=== PATIENT | female | born 1990 | race Caucasian/White ===

== ENCOUNTER 2017-02-25 09:04 | Observation (INO) | payer BC ==
[~2017-02-25] VITALS: Ht 162.6 cm; Wt 56.7 kg
[2017-02-25] MEDS ORDERED: HYDROCODONE/ACETAMOPHEN 5/325MG TAB PO STA (09:22)
--- NOTE | 2017-02-25 09:58 | DIAGNOSTIC IMAGING REPORT ---
CT HEAD WITHOUT CONTRAST (CT) CLINICAL HISTORY: Worst headache of life. Right orbital pain. COMPARISON STUDY: No previous studies for comparison. TECHNIQUE: Axial CT of the brain is performed from the vertex to the skull base. IV contrast was not administered for this examination. CT DOSE: 729.09 mGy.cm FINDINGS: No intra or extra-axial mass lesions are visualized. There is no CT evidence of acute cortical infarction. There is no evidence of midline shift. There is no acute hemorrhage. No calvarial fractures are visualized. There is no evidence of pathologic ventricular dilatation. There is a right maxillary sinus air-fluid level. There is mucosal thickening within the left maxillary sinus. Multiple ethmoid air cells are opacified. There is opacification of a hypoplastic right frontal sinus. IMPRESSION: 1. Moderately extensive sinus disease 2. Otherwise no acute intracranial findings Electronically signed by: Jason Brewer M.D. 02/25/2017 9:57 AM Dictated Date/Time: 02/25/2017 9:54 AM
[2017-02-25 10:01] LABS: BASO % 0.1 %; BASO ABS # 0.01 K/uL (0-0.2); COMPLETE YES; EOS % 1.4 %; HEMATOCRIT 36.8 % (37-47); IG% 0.2 %; LYMPH ABS # 1.43 K/uL (1.2-3.4); MEAN CORPUSCULAR HEMOGLOBIN 29.8 pg (25-34); MEAN CORPUSCULAR HGB CONC 34.2 g/dl (32-36); MEAN PLATELET VOLUME 8.4 fL (7.4-10.4); MONO % 5.6 %; NEUT % 81.7 %; PLATELET COUNT 346 K/uL (130-400); RED BLOOD COUNT 4.23 M/uL (4.2-5.4); WHITE BLOOD COUNT 13.04 K/uL (4.8-10.8)
--- NOTE | 2017-02-25 10:03 | EMERGENCY ROOM VISIT NOTE ---
History First contact with patient: 09:13 Chief Complaint: HEAD PAIN Stated Complaint: CONGESTION,FACIAL PAIN History of Present Illness The patient is a 27 year old female who presents to the Emergency Room via private vehicle, referred by [facility] [employer] with complaints of "congestion, facial pain". The patient states that Sunday night, she began with pain behind her right eye, and a headache that progressed throughout the day into , Sunday and yesterday. The headache has become more intense, and is noted to be the worse headache of her life. She notes a lot of pain around her right eye, and worst at the bridge of the nose and frontal bone. She rates the pain as a 9 /10. She last took pain medication at 3 AM which was ibuprofen. She does complain of pain with eye movements of the right eye. She denies any chest pain , shortness of breath, vision changes, trauma to the region, having this before , cough, runny nose, fevers, chills. There has been no vision change. Review of Systems A complete 10-point Review of Systems was discussed with the patient, with pertinent positives and negatives listed in the History of Present Illness. All remaining Review of Systems questions can be considered negative unless otherwise specified. Past Medical/Surgical History Medical Problems: (1) Facial cellulitis Asthma, bronchitis Family History Diabetes Social History Smoking Status: Never Smoker Social History: Patient lives at home with spouse. She is not employed. She denies alcohol and tobacco use. Current/Historical Medications Scheduled Control Pills ( Control Pills), 1 TAB PO DAILY Budesonide/Formoterol Fumarate (Symbicort 80/4.5 Inhaler), 2 PUFFS INH BID Allergies Coded Allergies: No Known Allergies (Unverified , 02/25/17) Physical Exam Vital Signs Date Time Temp Pulse Resp B/P Pulse Ox O2 Delivery O2 Flow Rate FiO2 02/25/17 10:57 79 18 112/76 98 Room Air 02/25/17 09:08 36.8 96 16 128/81 100 Room Air Physical Exam VITAL SIGNS - Vital signs and nursing notes were reviewed. Patient is afebrile , normotensive, non-tachycardic and is saturating well with room air 100%. GENERAL -27-year-old female appearing her stated age who is in no acute distress. Communicates well with provider and answers questions appropriately. SKIN - there is slight edema periorbitally around the right eye. No other rashes or erythema. HEAD - NC/AT. EYES - PERRL with EOMI bilaterally. There is tenderness noted to extraocular movements of the right eye. Minimal tenderness of the right eye. There is periorbital tenderness of the right eye. This is most noted at the superior medial portion of the right orbit. Sclera anicteric. Palpebral conjunctiva pink and moist with no injection noted. EARS - No deformities of external structures noted on gross examination bilaterally. No pain elicited with palpation of the tragus bilaterally. External auditory canals without discharge or otorrhea. Tympanic membranes pearly ge without retraction or bulging. No fluid or purulent material visualized behind the TM. Handle of malleus, umbo, cone of light, pars tensa/ flaccid all easily visualized. NOSE - Midline and without cyanosis. No epistaxis or purulent drainage noted. Septum midline without deviation or septal hematoma noted. MOUTH/OROPHARYNX - Without perioral cyanosis. Buccal mucosa pink and moist and without leukoplakia. Tongue midline with equal elevation of palate bilaterally. No tonsillar hypertrophy, erythema, or exudates noted. Good dentition noted. NECK - Neck with FROM. Supple to palpation. No lymphadenopathy noted. No nuchal rigidity. No meningismus. LUNGS - Chest wall symmetric without accessory muscle use, intercostals retractions, or central cyanosis. Normal vesicular breath sounds CTA B/L. No wheezes, rales, or rhonchi appreciated. CARDIAC - RRR with S1/S2. No murmur, rubs, or gallops appreciated. Medical Decision & Procedures ER Provider Diagnostic Interpretation: CT HEAD WITHOUT CONTRAST (CT) CLINICAL HISTORY: Worst headache of life. Right orbital pain. COMPARISON STUDY: No previous studies for comparison. TECHNIQUE: Axial CT of the brain is performed from the vertex to the skull base. IV contrast was not administered for this examination. CT DOSE: 729.09 mGy.cm FINDINGS: No intra or extra-axial mass lesions are visualized. There is no CT evidence of acute cortical infarction. There is no evidence of midline shift. There is no acute hemorrhage. No calvarial fractures are visualized. There is no evidence of pathologic ventricular dilatation. There is a right maxillary sinus air-fluid level. There is mucosal thickening within the left maxillary sinus. Multiple ethmoid air cells are opacified. There is opacification of a hypoplastic right frontal sinus. IMPRESSION: 1. Moderately extensive sinus disease 2. Otherwise no acute intracranial findings Electronically signed by: Jason Brewer M.D. 02/25/2017 9:57 AM Dictated Date/Time: 02/25/2017 9:[address] FACIAL BONES-MXILLOFAC WITHOUT CT DOSE: CLINICAL HISTORY: Severe headache and right orbital pain COMPARISON STUDY: No previous studies for comparison. TECHNIQUE: Helical images were acquired in the transverse plane. The study was reviewed and analyzed on the independent 3-D workstation. The pterygoid plates appear intact. The zygomatic arches appear intact. The globes appear intact. There is no evidence of orbital emphysema. There is minimal right-sided periorbital edema. The retroconal soft tissues appear unremarkable. The orbital daniels and floor appear intact. The mandibular condyles appear intact. There is opacification of a hypoplastic right frontal sinus. Multiple ethmoid air cells are opacified. There is moderate lobulated mucosal thickening within the left maxillary sinus. There is partial opacification of the right maxillary sinus. There are equivocal erosive changes involving the medial daniels of both maxillary sinuses. IMPRESSION: 1. No facial fractures identified 2. Extensive sinus disease 3. Mild right-sided periorbital edema Electronically signed by: Jason Brewer M.D. 02/25/2017 10:00 AM Dictated Date/Time: 02/25/2017 9:57 AM Laboratory Results 02/25/17 09:30 Red Blood Count 4.23, Mean Corpuscular Volume 87.0, Mean Corpuscular Hemoglobin 29.8, Mean Corpuscular Hemoglobin Concent 34.2, Mean Platelet Volume 8.4, Neutrophils (%) (Auto) 81.7, Lymphocytes (%) (Auto) 11.0, Monocytes (%) (Auto) 5.6, Eosinophils (%) (Auto) 1.4, Basophils (%) (Auto) 0.1, Neutrophils # (Auto) 10.66, Lymphocytes # (Auto) 1.43, Monocytes # (Auto) 0.73, Eosinophils # (Auto) 0.18, Basophils # (Auto) 0.01 02/25/17 09:30 Test 02/25/17 09:30 02/25/17 09:35 White Blood Count 13.04 K/uL (4.8-10.8) Red Blood Count 4.23 M/uL (4.2-5.4) Hemoglobin 12.6 g/dL (12.0-16.0) Hematocrit 36.8 % (37-47) Mean Corpuscular Volume 87.0 fL (80-100) Mean Corpuscular Hemoglobin 29.8 pg (25-34) Mean Corpuscular Hemoglobin Concent 34.2 g/dl (32-36) Platelet Count 346 K/uL (130-400) Mean Platelet Volume 8.4 fL (7.4-10.4) Neutrophils (%) (Auto) 81.7 % Lymphocytes (%) (Auto) 11.0 % Monocytes (%) (Auto) 5.6 % Eosinophils (%) (Auto) 1.4 % Basophils (%) (Auto) 0.1 % Neutrophils # (Auto) 10.66 K/uL (1.4-6.5) Lymphocytes # (Auto) 1.43 K/uL (1.2-3.4) Monocytes # (Auto) 0.73 K/uL (0.11-0.59) Eosinophils # (Auto) 0.18 K/uL (0-0.5) Basophils # (Auto) 0.01 K/uL (0-0.2) RDW Standard Deviation 39.9 fL (36.4-46.3) RDW Coefficient of Variation 12.4 % (11.5-14.5) Immature Granulocyte % (Auto) 0.2 % Immature Granulocyte # (Auto) 0.03 K/uL (0.00-0.02) Anion Gap 8.0 mmol/L (3-11) Est Creatinine Clear Calc Drug Dose 99.6 ml/min Estimated GFR () 131.2 Estimated GFR (Non- 113.2 BUN/Creatinine Ratio 6.1 (10-20) Calcium Level 9.2 mg/dl (8.5-10.1) Total Bilirubin 0.4 mg/dl (0.2-1) Aspartate Amino Transf (AST/SGOT) 15 U/L (15-37) Alanine Aminotransferase (ALT/SGPT) 22 U/L (12-78) Alkaline Phosphatase 87 U/L (45-117) Total Protein 7.6 gm/dl (6.4-8.2) Albumin 3.6 gm/dl (3.4-5.0) Globulin 4.0 gm/dl (2.5-4.0) Albumin/Globulin Ratio 0.9 (0.9-2) Urine Color YELLOW Urine Appearance CLEAR (CLEAR) Urine pH 7.0 (4.5-7.5) Urine Specific [place] 1.008 (1.000-1.030) Urine Protein NEG (NEG) Urine Glucose (UA) NEG (NEG) Urine Ketones NEG (NEG) Urine Occult Blood NEG (NEG) Urine Nitrite NEG (NEG) Urine Bilirubin NEG (NEG) Urine Urobilinogen NEG (NEG) Urine Leukocyte Esterase MODERATE (NEG) Urine WBC (Auto) 5-10 /hpf (0-5) Urine RBC (Auto) 0-4 /hpf (0-4) Urine Hyaline Casts (Auto) 0 /lpf (0-5) Urine Epithelial Cells (Auto) >30 /lpf (0-5) Urine Bacteria (Auto) NEG (NEG) Urine Test NEG (NEG) Medications Administered Medications (Trade) Dose Ordered Sig/Gracy Route Start Time Stop Time Status Last Admin Dose Admin Acetaminophen/ Hydrocodone Bitart ([place] 5/325 Tab) 1 tab NOW STAT PO 02/25/17 09:22 02/25/17 09:24 DC 02/25/17 09:27 1 TAB Morphine Sulfate (MoRPHine SULFATE INJ) 4 mg NOW STAT IV 02/25/17 11:12 02/25/17 11:13 DC 02/25/17 11:20 4 MG Ondansetron HCl 4 mg 4 mg NOW STAT IV 02/25/17 11:12 02/25/17 11:13 DC 02/25/17 11:20 4 MG Ampicillin Sodium/ Sulbactam Sodium 3000 mg/Sodium Chloride 108 ml @ 200 mls/hr NOW STAT IV 02/25/17 11:24 02/25/17 11:56 DC 02/25/17 11:48 200 MLS/HR Vancomycin HCl/ Sodium Chloride (Vancomycin Inj/ Nss 250ml) 272 ml @ 125 mls/hr NOW STAT IV 02/25/17 11:24 02/25/17 13:34 DC 02/25/17 12:33 125 MLS/HR Medical Decision Patient was seen and evaluated as above. After obtaining a thorough history and physical examination IV access was initiated and above workup was performed. Patient presents to us today referred by [facility]. Benefits versus risk of obtaining CT scans were discussed. The decision was made to scan. Urine was obtained prior to scans. Clinically there is concern for periorbital cellulitis, and the CT scan does reveal extensive sinus disease with potential for right periorbital edema. The scan was performed without contrast as this is also the worse headache of the patient's life. There is no meningismus on examination. CBC does reveal leukocytosis of 13.04, no significant anemia, her potassium is low at 3.4, BUN low at 4, or other abnormality noted on PRP. UA does reveal moderate leukocytes, 5 to 10 WBC, >30 cells. No evidence of UTI at this time. Urine test negative. As the patient at this time does appear stable, and concern for early potential periorbital cellulitis. I did express this concern with the patient who shared similar concern therefore she was given 1,100 milligrams of vancomycin and 3 g of Unasyn. Pharmacy was called salted to discuss these dosages and medication. At this time the case was discussed with my attending and subsequent the hospitalist. Please refer to further documentation regarding the patient's stay. I do believe she would benefit from further evaluation and management. IMPRESSION: Closed Head Injury In the evaluation and treatment of this patient, the following differential diagnoses were considered: Concussion, Contrecoup Injury, Brain Tumor, Depression, Encephalitis, Hypothyroidism, Meningitis, CVA, TIA, Migraine, Cluster Headache, Intracranial Abnormality, Intracranial Hemorrhage, Subdural Hematoma, Subarachnoid Hemorrhage, Hydrocephalu, Corneal Abrasion, Conjunctivitis, Eye Contusion, Globe Injury, Orbital Floor Injury (Blowout Fracture), Corneal Ulcer, Keratitis, Herpes Zoster Opthalmic, Blepharitis, Orbital Cellulitis, Iritis, Scleritis/Episcleritis, Uveitis, Temporal Arteritis , Subconjunctival Hemorrhage. Impression Primary Impression: Periorbital cellulitis of right eye Additional Impression: Sinus disease Departure Information Dispostion Admitted as an inpatient Condition FAIR Referrals No Doctor, Assigned (PCP) Patient Instructions [facility] Problem Qualifiers
[2017-02-25 10:11] LABS: CALCIUM 9.2 mg/dl (8.5-10.1)
[2017-02-25 10:12] LABS: BUN/CREATININE RATIO 6.1 (10-20); CREATININE 0.72 mg/dl (0.60-1.20); POTASSIUM 3.4 mmol/L (3.5-5.1)
[2017-02-25] MEDS ORDERED: SYMIN/8045 INH (10:12)
[2017-02-25] MEDS ORDERED: BCPILLS PO (10:12)
[2017-02-25 10:15] LABS: ALB/GLOB RATIO 0.9 (0.9-2)
[2017-02-25 10:51] LABS: URINE APPEARANCE CLEAR (CLEAR); URINE BILIRUBIN NEG (NEG); URINE COLOR YELLOW; URINE EPITHELIAL CELL AUTO >30 /lpf (0-5); URINE NITRITE NEG (NEG); URINE SPECIFIC GRAVITY 1.008 (1.000-1.030); UROBILINOGEN NEG (NEG); ZZUR CULT IF INDIC CLEAN CATCH NO
[2017-02-25 10:55] LABS: MANUAL MICROSCOPIC REQUIRED? NO; REVIEW REQ? NO
[2017-02-25] MEDS ORDERED: ONDANSETRON INJ 2 MG/ML 2 ML VIAL IV STA (11:12)
[2017-02-25] MEDS ORDERED: MoRPHine SULFATE 4 MG/ML 1 ML CARP\\VIAL IV STA (11:12)
[2017-02-25] MEDS ORDERED: VANCOMYCIN INJ 1,100 MG in SODIUM CHLORIDE 0.9% 250ML 250 ML IV STA (11:24)
[2017-02-25] MEDS ORDERED: AMPICILLIN/SULBACTAM SOD INJ 3,000 MG in SODIUM CHLORIDE 0.9% 100ML 100 ML IV STA (11:24)
[2017-02-25] MEDS ORDERED: AMPICILLIN/SULBACTAM SOD INJ 3,000 MG in SODIUM CHLORIDE 0.9% 100ML 100 ML IV SCH (12:15)
[2017-02-25] MEDS ORDERED: SODIUM CHLORIDE 0.9% IV SCH (12:15)
[2017-02-25] MEDS ORDERED: MAGNESIUM HYDROXIDE SUSP 30 ML UDC PO PRN (12:15)
[2017-02-25] MEDS ORDERED: ONDANSETRON INJ 2 MG/ML 2 ML VIAL IV PRN (12:15)
[2017-02-25] MEDS ORDERED: ACETAMINOPHEN 325 MG TAB PO PRN (12:15)
[2017-02-25] MEDS ORDERED: ALUMINUM/MAGNESIUM/SIMETH (MAALOX MAX) 30 ML UDC PO PRN (12:15)
[2017-02-25] MEDS ORDERED: VANCOMYCIN IV SCH (12:15)
[2017-02-25] MEDS ORDERED: OXYCODONE/ACETAMINOPHEN 5-325 TAB PO PRN (12:15)
[2017-02-25] MEDS ORDERED: POLYETHYLENE (MIRALAX) 17 GM PACK PO PRN (12:15)
--- NOTE | 2017-02-25 12:57 | History and Physical ---
History & Physical Date of Service February 25, 2017. History & Physical obs #[id number]
--- NOTE | 2017-02-25 12:59 | Progress Note ---
Progress Note Date of Service February 25, 2017. Progress Note with erosions of daniels on CT - suspect acute on chronic sinusitis - would want ongoing follow up for this and possible need for outpatient ENT involvement depending on progress/ongoing sx
[2017-02-25] MEDS ORDERED: HOME MED ADMINISTRATION ONE (13:00)
[2017-02-25] MEDS ORDERED: VANCOMYCIN CONSULT ACTIVE PRN (13:00)
[2017-02-25] MEDS ORDERED: IV FLUIDS COMPLETED PRN (13:15)
--- NOTE | 2017-02-25 13:34 | HISTORY & PHYSICAL EXAMINATION ---
DATE OF ADMISSION: 02/25/2017 ADMISSION HISTORY AND PHYSICAL CHIEF COMPLAINT: Face pain. HISTORY OF PRESENT ILLNESS: The patient is a very pleasant 27-year-old female who notes that a couple of days ago she started with headache, she thought it was migrainous but it did not go away, progressed, she had pain kind of on the right side of her face and around her eye and then they started wondering if it was a sinus infection. They went to urgent care this morning who sent her to the ER. Here in the ER, she was found to have findings consistent with a right maxillary sinusitis and a degree of facial cellulitis and we were asked to see her for further inpatient management. She denies fevers, chills, or sweats. Denies any flaring of her asthma, no cough, no wheeze, no shortness of breath. She has no vision changes, it hurts around her eye, but she has full motion of her eye and no visual loss, whatsoever. REVIEW OF SYSTEMS: Otherwise negative, except for as above. PAST MEDICAL HISTORY: Includes asthma, sounds to be moderate but under good control. MEDICATIONS: Symbicort 80/4.5 b.i.d. and control pills. PAST SURGICAL HISTORY: None. SOCIAL HISTORY: She is , has 2 kids. 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 No substance abuse. ALLERGIES: No known drug allergies. FAMILY HISTORY: Her dad has diabetes. There is no family history of immune suppression. PHYSICAL EXAMINATION: VITAL SIGNS: Temperature 36.8, pulse 96, respiratory rate 16, blood pressure 128/81, 100% on room air. GENERAL: She is awake, alert, oriented x3, pleasant, in no acute distress. HEENT: Normocephalic, atraumatic. Mucous membranes are moist. She has mild right maxillary sinus tenderness to palpation and she has had dull erythema, but surprisingly not exceedingly tender, on her right cheek and around the lateral aspect of her right eye, none of it even goes to the lids. Extraocular motion is completely intact without any restriction without any notable pain. Pupils are equal, round and reactive to light and her vision seems to be equal and intact. CARDIOVASCULAR: Regular without rubs, murmurs, or gallops. LUNGS: Clear to auscultation bilaterally. No rales, rhonchi, or wheezes with good effort. ABDOMEN: Soft, nondistended, nontender, no masses or organomegaly. EXTREMITIES: Without cyanosis, clubbing or edema. No calf tenderness. SKIN: Shows no rashes. No pallor or icterus. NEUROLOGIC: Shows cranial nerves II-XII to be grossly intact. Gross motor and sensory are intact. MUSCULOSKELETAL: Yields no gross lesions. MENTAL STATUS: Shows good recent and remote recall. Normal mood and affect. Good judgment and insight. LABORATORIES AND DIAGNOSTICS: CBC shows a white count of 13.04 with a hemoglobin 12.6, platelets 346. Complete metabolic panel with sodium 139, potassium 3.4, chloride 106, CO2 25, BUN 4, creatinine 0.72. Calcium 9.2, glucose 92, total protein 7.6, total bilirubin 0.4 with an AST of 15, ALT of 22, albumin 3.6. Urinalysis is yellow, clear, specific gravity 1.008, moderate leukocyte esterase, 5-10 white cells, greater than 30 epithelial cells. Urine test is pending. Head CT shows no intra or extra-axial mass lesions visualized. No CT evidence of cortical infarct, no evidence of midline shift, no acute hemorrhage, no calvarial fractures, no evidence of pathological ventricular dilation in the right maxillary sinus, air fluid level mucosal thickening within the left maxillary sinus, multiple ethmoid air cells opacified, opacification of a hypoplastic right frontal sinus and a maxillofacial CT shows pterygoid plates intact, zygomatic arch is intact, globes intact, no evidence of orbital emphysema, minimal right-sided periorbital edema, orbital soft tissues appear unremarkable, orbital daniels and floor appear intact, mandibular condyles appear intact, opacification of a hypoplastic right frontal sinus, multiple ethmoid air cells opacified, moderate lobulated mucosal thickening in the left maxillary sinus, partial opacification of the right maxillary sinus, equivocal erosive changes in the medial daniels of both maxillary sinuses. ASSESSMENT AND PLAN: 1. Acute sinusitis with right facial cellulitis. Fortunately, she shows no radiographic nor physical exam nor symptomatic findings of anything intracranial/post septal/intra orbital; however, given the cellulitis, the proximity to her eye, I agree that initial management with IV antibiotics to ensure clear improvement appears to be warranted. Unasyn has been started in the Emergency Rom along with vancomycin, will continue both of these for now. Check a methicillin-resistant staphylococcus aureus nares, follow for her progress and hopefully be able to discharge her or in short order on Augmentin or Augmentin plus Doxy depending on her further clinical course. Technically, she meets systemic inflammatory response syndrome criteria on arrival with her white count and her pulse, by qSOFA she does not really appear to be septic, so just for clarification purposes, I would call it a maxillary sinusitis and facial cellulitis with systemic inflammatory response syndrome, question of sepsis. 2. Asthma. Fortunately, this appears to be overall stable. Continue her Symbicort. 3. Mild hypokalemia, I suspect this will correct with diet alone. Repeat a basic metabolic panel in the morning. 4. Deep venous thrombosis prophylaxis, ambulation. MTDD
[2017-02-25 15:00] VITALS: BP 113/79; PULSE 96; TEMP 37.8; O2SAT 100
[2017-02-25 15:53] VITALS: BP 113/79; PULSE 96; TEMP 37.8; O2SAT 96; Ht 162.6 cm; Wt 56.7 kg
--- NOTE | 2017-02-25 15:54 | Pharmacy Progress Note ---
Pharmacy Antibiotic Consult Date of Service: February 25, 2017. Pharmacy Dosing Scope Pharmacy is consulted to initiate Vanco IV dosing therapy, order appropriate labs and adjust drug dose/frequency. Subjective The patient is a 27 year old female admitted on February 25, 2017 at 12:12. Objective Height (Feet): 5 Height (Inches): 4.00 Weight (Kilograms): 56.700 Lab Results (24hrs): Test 02/25/17 09:30 02/25/17 09:35 White Blood Count 13.04 K/uL (4.8-10.8) Red Blood Count 4.23 M/uL (4.2-5.4) Hemoglobin 12.6 g/dL (12.0-16.0) Hematocrit 36.8 % (37-47) Mean Corpuscular Volume 87.0 fL (80-100) Mean Corpuscular Hemoglobin 29.8 pg (25-34) Mean Corpuscular Hemoglobin Concent 34.2 g/dl (32-36) Platelet Count 346 K/uL (130-400) Mean Platelet Volume 8.4 fL (7.4-10.4) Neutrophils (%) (Auto) 81.7 % Lymphocytes (%) (Auto) 11.0 % Monocytes (%) (Auto) 5.6 % Eosinophils (%) (Auto) 1.4 % Basophils (%) (Auto) 0.1 % Neutrophils # (Auto) 10.66 K/uL (1.4-6.5) Lymphocytes # (Auto) 1.43 K/uL (1.2-3.4) Monocytes # (Auto) 0.73 K/uL (0.11-0.59) Eosinophils # (Auto) 0.18 K/uL (0-0.5) Basophils # (Auto) 0.01 K/uL (0-0.2) RDW Standard Deviation 39.9 fL (36.4-46.3) RDW Coefficient of Variation 12.4 % (11.5-14.5) Immature Granulocyte % (Auto) 0.2 % Immature Granulocyte # (Auto) 0.03 K/uL (0.00-0.02) Sodium Level 139 mmol/L (136-145) Potassium Level 3.4 mmol/L (3.5-5.1) Chloride Level 106 mmol/L (98-107) Carbon Dioxide Level 25 mmol/L (21-32) Anion Gap 8.0 mmol/L (3-11) Blood Urea Nitrogen 4 mg/dl (7-18) Creatinine 0.72 mg/dl (0.60-1.20) Est Creatinine Clear Calc Drug Dose 99.6 ml/min Estimated GFR () 131.2 Estimated GFR (Non- 113.2 BUN/Creatinine Ratio 6.1 (10-20) Random Glucose 92 mg/dl (70-99) Calcium Level 9.2 mg/dl (8.5-10.1) Total Bilirubin 0.4 mg/dl (0.2-1) Aspartate Amino Transf (AST/SGOT) 15 U/L (15-37) Alanine Aminotransferase (ALT/SGPT) 22 U/L (12-78) Alkaline Phosphatase 87 U/L (45-117) Total Protein 7.6 gm/dl (6.4-8.2) Albumin 3.6 gm/dl (3.4-5.0) Globulin 4.0 gm/dl (2.5-4.0) Albumin/Globulin Ratio 0.9 (0.9-2) Urine Color YELLOW Urine Appearance CLEAR (CLEAR) Urine pH 7.0 (4.5-7.5) Urine Specific [place] 1.008 (1.000-1.030) Urine Protein NEG (NEG) Urine Glucose (UA) NEG (NEG) Urine Ketones NEG (NEG) Urine Occult Blood NEG (NEG) Urine Nitrite NEG (NEG) Urine Bilirubin NEG (NEG) Urine Urobilinogen NEG (NEG) Urine Leukocyte Esterase MODERATE (NEG) Urine WBC (Auto) 5-10 /hpf (0-5) Urine RBC (Auto) 0-4 /hpf (0-4) Urine Hyaline Casts (Auto) 0 /lpf (0-5) Urine Epithelial Cells (Auto) >30 /lpf (0-5) Urine Bacteria (Auto) NEG (NEG) Urine Test NEG (NEG) Assessment & Plan Pt is a 27yo F p/w headache after being referred from [facility]. She is found to have acute sinusitis along w/ facial cellulitis. Renal fxn looks excellent. Pt population p'kinetics: Vd=0.7, ke=0.0874, t1/2=7.9hrs. She is experiencing leukocytosis w/ left shift, fever, & tachycardia. RR WNL. No BCs have been drawn as of yet. This is her first admission at [facility] I am unsure if she has a h/o of MDRO or if renal fxn is at baseline. Vanco: Loading dose: In ED Vanco 1100mg (20mg/kg) IV X 1 dose then: Vanco 850mg (15mg/kg) IV every 10 hours set to start at 2000 on 02/25/17. Goal trough level estimate: between 15 - 20 mcg/mL. Trrough level has been ordered for: at 0130 prior to the third MD. Unasyn: Not consulted; however, appropriately dosed given eCrCl >30cc/min Thank you for consulting the pharmacy kinetic team and including us in the care of Ms. Felix. Pharmacy will continue to follow and will adjust dose/frequency as necessary. Thank you
[2017-02-25] MEDS: AMPICILLIN/SULBACTAM SOD INJ 3,000 MG in SODIUM CHLORIDE 0.9% 100ML 100 ML IV SCH (18:31)
[2017-02-25] MEDS: IBUPROFEN 600 MG TAB PO PRN (18:35)
[2017-02-25] MEDS: BUDESONIDE/FORMOTEROL FUMARATE 80/4.5 60 PUFFS/INHALER INH SCH (20:50)
[2017-02-25] MEDS: VANCOMYCIN INJ 850 MG in SODIUM CHLORIDE 0.9% 250ML 250 ML IV SCH (20:50)
[2017-02-25 23:06] VITALS: BP 90/56; PULSE 61; TEMP 36.7; O2SAT 98
[2017-02-26] MEDS: AMPICILLIN/SULBACTAM SOD INJ 3,000 MG in SODIUM CHLORIDE 0.9% 100ML 100 ML IV SCH ×3 (00:15→12:28)
[2017-02-26] MEDS: IBUPROFEN 600 MG TAB PO PRN ×2 (06:17→14:04)
[2017-02-26] MEDS: VANCOMYCIN INJ 850 MG in SODIUM CHLORIDE 0.9% 250ML 250 ML IV SCH (06:41)
[2017-02-26 06:46] VITALS: BP 100/64; PULSE 82
[2017-02-26 06:47] VITALS: BP 101/67; PULSE 82; TEMP 36.9; O2SAT 100
[2017-02-26] MEDS: BUDESONIDE/FORMOTEROL FUMARATE 80/4.5 60 PUFFS/INHALER INH SCH (07:53)
[2017-02-26 08:11] LABS: BASO % 0.2 %; BASO ABS # 0.02 K/uL (0-0.2); COMPLETE YES; EOS % 2.6 %; HEMATOCRIT 31.1 % (37-47); IG% 0.1 %; LYMPH % 15.6 %; LYMPH ABS # 1.36 K/uL (1.2-3.4); MEAN CELL VOLUME 86.6 fL (80-100); MEAN CORPUSCULAR HEMOGLOBIN 29.5 pg (25-34); MEAN CORPUSCULAR HGB CONC 34.1 g/dl (32-36); MEAN PLATELET VOLUME 8.2 fL (7.4-10.4); MONO % 7.8 %; NEUT % 73.7 %; PLATELET COUNT 289 K/uL (130-400); RED BLOOD COUNT 3.59 M/uL (4.2-5.4); WHITE BLOOD COUNT 8.72 K/uL (4.8-10.8)
[2017-02-26 08:36] LABS: BUN/CREATININE RATIO 10.9 (10-20); CREATININE 0.56 mg/dl (0.60-1.20); POTASSIUM 3.6 mmol/L (3.5-5.1)
[2017-02-26 08:50] LABS: CALCIUM 8.9 mg/dl (8.5-10.1)
--- NOTE | 2017-02-26 13:31 | Hospitalist Progress Note ---
Hospitalist Progress Note Date of Service February 26, 2017. Subjective Pt evaluation today including: conversation w/ patient, conversation w/ family , physical exam, chart review, lab review, review of studies, review of inpatient medication list Pain: None PO Intake: Tolerating PO diet Voiding: no voiding problems The patient no longer complains of a headache or pain on the right side of her face. Per her and mother at bedside the redness surrounding her right eye has improved however the swelling has worsened. The patient states that she has a lot of difficulty opening her right eye, and the swelling is very concerning for her. She has tried applying an ice pack to the area without much change. The patient denies vision changes, eye pain, fevers, chills, sweats, chest pain, palpitations, claudication, cough, wheezing, shortness of breath, nausea, vomiting, abdominal pain, dysuria, hematuria, urinary retention , paralysis, weakness, numbness and tingling. Additional Comments: See HPI for pertinent positives and negatives. All other systems reviewed and negative. Objective Vital Signs Date Time Temp Pulse Resp B/P Pulse Ox O2 Delivery O2 Flow Rate FiO2 02/26/17 08:00 Room Air 02/26/17 06:47 36.9 82 16 101/67 100 Room Air 02/26/17 06:46 82 100/64 02/26/17 00:00 Room Air 02/25/17 23:06 36.7 61 18 90/56 98 Room Air 02/25/17 15:53 37.8 96 18 113/79 96 Room Air 02/25/17 15:00 37.8 96 18 113/79 100 Room Air 02/25/17 14:36 94 18 112/77 98 02/25/17 13:44 83 18 109/80 97 Physical Exam Notes: General appearance: Well-developed, well-nourished, no apparent distress Head: Normocephalic, atraumatic Eyes: +Swelling of R eyelid. Pt cannot fully open R eye. Very minimal erythema below R eye only, no erythema on lids. R ethmoid and maxillary sinuses mildly TTP. Area below R brow bone TTP. EOMI without pain. PERRL ENT: Normal ENT inspection, hearing grossly normal, pharynx normal Neck: +Mildly tender LAD R side. Supple, no JVD, trachea midline Respiratory/Chest: Lungs clear to auscultation, normal breath sounds, no respiratory distress Cardiovascular: Regular rate & rhythm, no gallop, no murmur Abdomen/GI: Normal bowel sounds, non-tender, soft Extremities/Musculoskeletal: Normal inspection, no calf tenderness, no pedal edema Neurological/Psych: Alert, normal mood/affect, oriented x 3 Skin: Normal color, warm/dry, no rash Laboratory Results Last 24 Hours Test 02/26/17 07:45 White Blood Count 8.72 K/uL Red Blood Count 3.59 M/uL Hemoglobin 10.6 g/dL Hematocrit 31.1 % Mean Corpuscular Volume 86.6 fL Mean Corpuscular Hemoglobin 29.5 pg Mean Corpuscular Hemoglobin Concent 34.1 g/dl Platelet Count 289 K/uL Mean Platelet Volume 8.2 fL Neutrophils (%) (Auto) 73.7 % Lymphocytes (%) (Auto) 15.6 % Monocytes (%) (Auto) 7.8 % Eosinophils (%) (Auto) 2.6 % Basophils (%) (Auto) 0.2 % Neutrophils # (Auto) 6.42 K/uL Lymphocytes # (Auto) 1.36 K/uL Monocytes # (Auto) 0.68 K/uL Eosinophils # (Auto) 0.23 K/uL Basophils # (Auto) 0.02 K/uL RDW Standard Deviation 38.8 fL RDW Coefficient of Variation 12.2 % Immature Granulocyte % (Auto) 0.1 % Immature Granulocyte # (Auto) 0.01 K/uL Sodium Level 142 mmol/L Potassium Level 3.6 mmol/L Chloride Level 107 mmol/L Carbon Dioxide Level 25 mmol/L Anion Gap 10.0 mmol/L Blood Urea Nitrogen 6 mg/dl Creatinine 0.56 mg/dl Est Creatinine Clear Calc Drug Dose 128.1 ml/min Estimated GFR () 146.0 Estimated GFR (Non- 126.0 BUN/Creatinine Ratio 10.9 Random Glucose 88 mg/dl Calcium Level 8.9 mg/dl Assessment and Plan 27-year-old female with history of asthma who presents to the ED on 02/25 with right-sided facial pain. Pt meets sepsis criteria on arrival with heart rate over 90, WBC over 12k, and source of infection. Sepsis secondary to acute sinusitis and right facial cellulitis--stable. Erythema and pain much improved however patient has worsening swelling around her right eye -Admitted to med/surg -Continue IV Unasyn given worsening swelling -MRSA negative, can discontinue vancomycin -Continue to monitor eye swelling. Consider ENT consultation if symptoms worsen or more eye involvement Asthma--stable -Continue Symbicort 80/4.5 2 puffs inh BID Mild hypokalemia--resolved -Potassium 3.4 on arrival -Repeat potassium 3.6 on 02/26 GI prophylaxis -Maalox Max 15 mL PO q4h prn dyspepsia -Milk of magnesia 30 mL PO q6h prn constipation -Miralax 17 gm PO qd prn constipation -Zofran 4 mg IV q6h prn nausea DVT prophylaxis -Encourage ambulation Code Status -Level I, FULL RESUSCITATION STATUS
[2017-02-26] MEDS ORDERED: SALI0.6510 (15:36)
[2017-02-26] MEDS ORDERED: AMOX500T PO (15:36)
--- NOTE | 2017-02-26 15:37 | Discharge Instructions ---
Discharge Instructions Admission Admission Date: February 25, 2017 at 12:12 Admission Diagnosis: Facial Cellulitis. Discharge Care Plan - Problem: Medical Problems: (1) Periorbital cellulitis of right eye (2) Sinus disease Care Plan - Goal(s): Improve function Care Plan - Instructions: Recommended Home Diet: 1800 Tonio Wt Reduction, Regular VTE Core Measure Inpt VTE Proph given/why not?: Enoxaparin (Lovenox)SQ Follow Up Follow-Up: follow up with ENT physician in 2-3 weeks Rex Yu Recommendations: Call your doctor if: * Temperature above 101 degrees * Pain not relieved by pain medicine ordered * There is increased drainage or redness from any incision * You have any unanswered questions or concerns. Your Doctors Instructions noted above were prepared by provider Casandra Ibanez.
--- NOTE | 2017-02-26 15:49 | Discharge Summary ---
Discharge Summary Date of Service February 26, 2017. Discharge Summary Admission Date: February 25, 2017 at 12:12 Discharge Date: February 26, 2017 Discharge Disposition: Home Principal Diagnosis: facial cellulitis Problems/Secondary Diagnoses: asthma chronic sinusitis Medication Reconciliation New Medications: Amoxicillin & Pot Clavulanate (Augmentin 500MG) 1 Tab Tab 500 MG PO Q8H for 10 Days, TAB Saline ([place] Nasal [place]) 0.65 % Spr 2 SPRAYS NA QID, #1 BTL Continued Medications: Control Pills ( Control Pills) Tab 1 TAB PO DAILY, TAB Budesonide/Formoterol Fumarate (Symbicort 80/4.5 Inhaler) Unknown Strength Aero 2 PUFFS INH BID, INHALER Discharge Exam Review of Systems: Constitutional: No chills, No fatigue, No fever, No problem reported, No sweats, No weakness, No weight loss Eyes: No diplopia, No discharge, No eye pain, No problem reported, No redness, No worsening of vision ENT: No dental problems, No hearing loss, No nasal symptoms, No problem reported, No sore throat, No tinnitus, No trouble swallowing, No unusual epistaxis Respiratory: No cough, No dyspnea at rest, No dyspnea on exertion, No hemoptysis, No problem reported, No shortness of breath, No sputum, No wheezing Cardiovascular: No PND, No chest pain, No claudication, No edema, No orthopnea, No palpitations, No problem reported Abdomen: No GI bleeding, No constipation, No diarrhea, No nausea, No pain, No problem reported, No vomiting Musculoskeletal: No calf pain, No joint pain, No muscle pain, No problem reported, No swelling Neurologic: No balance problems, No memory loss, No numbness/tingling, No paralysis, No problem reported, No vertigo, No weakness Psychiatric: No anhedonism, No anxiety, No depression symptoms, No insomnia , No problem reported, No substance abuse Endocrine: No excessive thirst, No excessive urination, No fatigue, No problem reported Hematologic / Lymphatic: No abnormal bleeding/bruising, No clotting problems , No night sweats, No problem reported, No swollen lymph nodes Integumentary: No bleeding, No color change, No itch, No new/changing skin lesions, No problem reported, No rash Physical Exam: General Appearance: no apparent distress Eyes: + pertinent finding (right periorbital swelling but no pain with eye movement, no blurring of vision) ENT: normal ENT inspection, hearing grossly normal Neck: supple Respiratory/Chest: chest non-tender, lungs clear, normal breath sounds, no respiratory distress, no accessory muscle use Cardiovascular: regular rate, rhythm, no edema, no gallop, no JVD, no murmur , normal peripheral pulses Abdomen / GI: normal bowel sounds, non tender, soft, no organomegaly, no pulsatile mass Extremities: normal inspection, no calf tenderness, normal capillary refill , no pedal edema Neurologic/Psychiatric: vehicle body sander II-XII nml as tested, no motor/sensory deficits , alert, normal mood/affect, normal reflexes, oriented x 3 Skin: normal color, warm/dry, no rash Hospital Course Total Time Spent: Greater than 30 minutes This includes examination of the patient, discharge planning, medication reconciliation, and communication with other providers. Discharge Instructions Please refer to the electronic Patient Visit Report (Discharge Instructions) for additional information. Follow-Up 27 years old female with PMHx of asthma, allergic rhinitis and chronic sinusitis , presented to ED with headache, right side of the face swelling , CT head showed significant sinusitis , results attached, she denied any ophthalmic pain, proptosis, ophthalmoplegia, vision loss, papilledema, started on unasyn and vanco significantly improved next day and WBC count normalized nasal swab was negative for MRSA and she had no Hx of previous head and neck surgery she was discharged on normal saline nasal spray, Augmentin for 10 days instructed to follow up with ENT and take probiotic while on Abx
[2017-02-26 16:11] VITALS: BP 109/69; PULSE 89; TEMP 36.7; O2SAT 98
[2017-02-26 16:28] VITALS: BP 109/69; PULSE 89; TEMP 36.7; O2SAT 98
[2017-02-27] MEDS ORDERED: VANCOMYCIN TROUGH ONE (01:30)
== END 2017-02-26 16:45 | disposition home or self-care (01) ==
LOC: ENRESERVDT → ENRESERVTM → C.EDB 09:05 → C.MS4W 12:12
PROVIDERS: ADMIT Family Medicine; ATTEND Internal Medicine
DX: A41.9 Sepsis, unspecified organism (principal); L03.211 Cellulitis of face; E87.6 Hypokalemia; J45.909 Unspecified asthma, uncomplicated; Z83.3 Family history of diabetes mellitus; J01.90 Acute sinusitis, unspecified; J32.9 Chronic sinusitis, unspecified